=== PATIENT | female | born 1960 | race Caucasian/White ===

== ENCOUNTER 2020-11-16 08:52 | Outpatient (CLI) | payer OTHER, SELFPAY ==
[2020-11-16 09:51] LABS: Add Urine Microscopic? YES; Appearance Urine Cloudy (Clear); Bilirubin Urine Negative (Negative); Blood Urine Negative (Negative); Color Urine Yellow (Yellow); Glucose Urine UA Negative (Negative); Ketones Urine Negative (Negative); Leukocyte Esterase Ur 1+ LEU/UL (NEGATIVE); Nitrate Urine Negative (Negative); Protein Urine Negative (Negative); RBC Urine 0-2 /hpf (0-2); Urobilinogen Urine Negative mg/dL (<2.0); WBC Urine 16-20 /hpf (0-3)
[2020-11-16 09:54] LABS: Specific Grav Ur 1.004 (1.001-1.035)
== END 2020-11-16 08:53 | disposition home or self-care (01) ==
PROVIDERS: PCP Internal Medicine; Visit Provider Physician Assistant
DX: R30.0 Dysuria (principal)
CPT/HCPCS: 81001; 87077; 87086; 87088; 87186

== ENCOUNTER 2021-09-06 15:36 | Outpatient (CLI) | payer OTHER, SELFPAY ==
[2021-09-06 16:26] LABS: Add Urine Microscopic? YES; Appearance Urine Clear (Clear); Bacteria Urine Trace /hpf; Bilirubin Urine Negative (Negative); Blood Urine Negative (Negative); Color Urine Straw (Yellow); Glucose Urine UA Negative (Negative); Ketones Urine Negative (Negative); Leukocyte Esterase Ur 3+ LEU/UL (NEGATIVE); Mucus Urine Rare /lpf; Nitrate Urine Negative (Negative); Protein Urine Negative (Negative); Specific Grav Ur 1.016 (1.001-1.035); Squamous Epithelial Cell Urine Rare /hpf (Few); Urobilinogen Urine Negative mg/dL (<2.0); WBC Urine 31-50 /hpf (0-3)
== END 2021-09-06 15:37 | disposition home or self-care (01) ==
LOC: ANHLAB 15:38
PROVIDERS: PCP Internal Medicine; Visit Provider Physician Assistant
DX: R30.0 Dysuria (principal)
CPT/HCPCS: 81001; 87077; 87086; 87186

== ENCOUNTER 2021-10-15 15:38 | Outpatient (CLI) | payer OTHER, SELFPAY ==
[2021-10-15 16:37] LABS: Add Urine Microscopic? YES; Appearance Urine Clear (Clear); Bacteria Urine Trace /hpf; Bilirubin Urine Negative (Negative); Blood Urine 1+ (Negative); Color Urine Straw (Yellow); Glucose Urine UA Negative (Negative); Ketones Urine Negative (Negative); Leukocyte Esterase Ur 2+ LEU/UL (NEGATIVE); Nitrate Urine Negative (Negative); Protein Urine Negative (Negative); RBC Urine >75 /hpf (0-2); Specific Grav Ur 1.018 (1.001-1.035); Squamous Epithelial Cell Urine Rare /hpf (Few); Urobilinogen Urine Negative mg/dL (<2.0); WBC Urine >75 /hpf (0-3)
== END 2021-10-15 15:39 | disposition home or self-care (01) ==
LOC: ANHLAB 15:40
PROVIDERS: PCP Internal Medicine; Visit Provider Physician Assistant
DX: R30.0 Dysuria (principal)
CPT/HCPCS: 81001; 87086

== ENCOUNTER → 2021-11-01 15:11 | Outpatient (CLI) | payer OTHER, SELFPAY ==
--- NOTE | ~2021-11-01 | CT_ITS ---
EXAMINATION: CT abdomen pelvis wo con DATE: 11/01/2021 15:34 INDICATION: Chronic cystitis TECHNIQUE: Computed tomography (CT) of the abdomen and pelvis was performed without intravenous contr ast. Automated exposure control and iterative reconstruction technique were employed. The dose-length product was 390.04 mGy-cm. COMPARISON: None FINDINGS: Lung bases are clear. Heart size is normal. No pericardial or pleural effusion. Bilateral breast impl ants. Liver, gallbladder, spleen, pancreas and right adrenal gland are normal. 2.5 cm low-attenuation left adrenal adenoma. 5.9 x 3.4 x 4.7 cm exophytic cyst arising from the upper pole of the right kid megan. Left kidney is normal. There is mild colonic diverticulosis with a sigmoid predominance. There is no adjacent inflammatory change to suggest diverticulitis. Bowel wall thickening along the distal ileum and portion of the ascending, transverse and sigmoid colon consistent with ileocolitis. No bow el obstruction. Normal appendix. Bladder, retroflexed uterus and bilateral adnexa are unremarkable. N o free intraperitoneal gas or fluid. No pathologically enlarged abdominal or pelvic lymphadenopathy. Severe disc height loss with degenerative endplate changes at L5-S1. Otherwise mild spondylosis in th e more cephalad lumbar and lower thoracic spine. IMPRESSION: 1. Mild wall thickening at the distal ileum and along portions of the colon suspicious for ileocoliti s which could be infectious, inflammatory or less likely ischemic in etiology. 2. Mild diverticulosis. Reviewed, dictated and finalized at location A. [facility] [employer] IMPRESSION: 1. Mild wall thickening at the distal ileum and along portions of the colon suleman picious for ileocolitis which could be infectious, inflammatory or less likely ischemic in etiology. 2. Mild diverticulosis.
== END ==
PROVIDERS: PCP Internal Medicine; Visit Provider Urology
DX: N30.20 Other chronic cystitis without hematuria (principal); K57.30 Diverticulosis of large intestine without perforation or abscess without bleeding
CPT/HCPCS: 74176

== ENCOUNTER 2022-01-01 00:12 | Day surgery (SDC) | payer OTHER, SELFPAY ==
[2021-12-20 08:18] VITALS: BMI 24.0
[2022-01-01 07:31] VITALS: BP 142/85; PULSE 87; RESP 19; TEMP 36.4; O2SAT 97
[2022-01-01] MEDS: LACTATED RINGERS 1,000 ML 150 ML IV CONT (07:44)
--- NOTE | 2022-01-01 08:24 | WPDANESEPPF ---
Anes - Initial Pre Proc Eval Procedure: Operation Date: 01/01/22 08:45 Proposed Procedures p Colonoscopy - Robert Rubi MD Date/Time: 01/01/22 08:24 Surgeon: Robert Rubi MD Pre Op Diagnosis: abnormal CAT scan Patient Data Age: 61 Gender: F Height: 1.63 m Weight: 63.1 kg Last Vital Signs Temp 97.6 F 01/01/22 07:31 Pulse 87 01/01/22 07:31 Resp 19 01/01/22 07:31 BP 142/85 H 01/01/22 07:31 Pulse Ox 97 01/01/22 07:31 Allergies Allergy/AdvReac Type Severity Reaction Status Date / Time Penicillins Allergy Severe throat Verified 01/01/22 07:30 swelling erythromycin base Allergy Mild Hives Verified 01/01/22 07:30 Sulfa (Sulfonamide Allergy Mild Hives Verified 01/01/22 07:30 Antibiotics) Home Medications Medication Instructions Recorded Confirmed Type calcium carbonate 500 mg calcium 500 mg PO DAILY 12/13/19 12/20/21 History (1,250 mg) tablet viimxzaimhsx-Re-wrpn-minerals 1 tablet PO 12/13/19 12/14/21 History vitamin B complex 1 tablet PO DAILY 12/14/19 12/20/21 History fexofenadine 180 mg tablet 180 mg PO DAILY 09/11/20 12/20/21 History levothyroxine 50 mcg tablet 50 mcg PO DAILY #90 tablet 05/14/21 12/20/21 Rx sertraline 50 mg tablet 50 mg PO DAILY #90 tablet 12/14/21 12/20/21 Rx Patient hx anesthesia problems: none Family hx anesthesia problems: none Results Review: All pre-operative results and documents have been reviewed as part of the pre-operative evaluation. [facility] Past Medical History Medical History Abnormal CT scan, colon Cystitis Surgical History Surgical History H/O mastectomy H/O microdiscectomy Family History Family History Father FH myocardial infarction male first degree age known, Onset Age: 69 Mother Family history of malignant neoplasm of breast in first degree relative, Onset Age: 91 Social History Social History Smoking packs per day: 1 Smoking cigarettes per day: 20.0 Years smoked: 20 Smoking pack-years: 20.00 Smoking status: Former smoker Tobacco type: cigarettes Second hand tobacco smoke exposure: No Smoking end date: 08/25/09 Alcohol intake: current Alcohol use details: occasional social Substance use: current Substance use type: other Other substance usage details: edibles Last use: daily Living arrangements: with friend(s) Additional living arrangements comments: lives with significant Spiritual care concerns: No Anes - Eval Final PreProcedure Day of Procedure 01/01/22 08:24 Patient weight: normal Heart: regular rate and rhythm Lungs: clear to auscultation Airway: Mallampati scale class II Neurological: alert and oriented Last oral intake: >/= 8 hours ASA classification: III Emergent: no Anesthetic plan: proceed Anesthesia type and monitoring: general GIVS and standard monitoring Results Review: All pre-operative results and documents have been reviewed as part of the pre-operative evaluation. Informed Consent: The patient's anesthetic plan and its attendant risks and benefits were discussed with the patient/family/POA. Questions were solicited and answers provided to the satisfaction of the patient/family/POA.
--- NOTE | 2022-01-01 08:25 | WPDHPUPDATE1 ---
History and Physical Update Update Date/Time: 01/01/22 08:25 History and Physical has been reviewed, including an updated exam of the patient. There are NO changes in the patient's condition. Risks, benefits, and alternatives have been discussed and questions answered. Patient agrees to proceed with procedure.
[2022-01-01 08:47] VITALS: BP 107/81; PULSE 70; RESP 17; O2SAT 100
[2022-01-01 08:57] VITALS: BP 101/55; PULSE 68; RESP 16; O2SAT 100
[2022-01-01 09:07] VITALS: BP 121/76; PULSE 68; RESP 13; O2SAT 100
== END 2022-01-01 09:16 | disposition home or self-care (01) ==
PROVIDERS: PCP Internal Medicine; Visit Provider Internal Medicine Gastroenterology
PROC: 0DJD8ZZ Inspection of Lower Intestinal Tract, Via Natural or Artificial Opening Endoscopic (ICD-10-PCS; CPT 45378; principal; 2022-01-01 08:45)
DX: Z12.11 Encounter for screening for malignant neoplasm of colon (principal); K57.30 Diverticulosis of large intestine without perforation or abscess without bleeding; K64.8 Other hemorrhoids; N30.80 Other cystitis without hematuria; Z87.891 Personal history of nicotine dependence; E03.9 Hypothyroidism, unspecified; Z85.3 Personal history of malignant neoplasm of breast
CPT/HCPCS: 45378; J2001; J2704; J7120

== ENCOUNTER 2025-06-13 08:36 | Outpatient (CLI) | payer OTHER, SELFPAY ==
--- NOTE | ~2025-06-13 | XR_ITS ---
EXAMINATION: XR foot RT min 3V, 06/13/2025 9:00 CDT HISTORY: M79.672 - Pain in RIGHT foot, NKI, PAIN ON BOTTOM OF FOOT COMPARISON: No comparisons available. Findings: No acute fracture or malalignment. No significant degenerative changes. Soft tissues unremarkable. Impression: No acute fracture or malalignment. Reviewed, dictated and finalized at location P. Impression: No acute fracture or malalignment.
== END 2025-06-13 08:37 | disposition home or self-care (01) ==
PROVIDERS: PCP Internal Medicine; Visit Provider Internal Medicine
DX: M79.671 Pain in right foot (principal)
CPT/HCPCS: 73630